=== PATIENT | male | born 1985 | race Caucasian/White ===

== ENCOUNTER 2017-03-12 11:05 | Outpatient (CLI) ==
[2016-04-19 00:02] VITALS: BMI 28.3
[2017-03-12 11:21] LABS: BASOPHILS # (AUTO) 0.1 K/uL (0-0.2); BASOPHILS % (AUTO) 0.6 % (0.0-3.0); EOSINOPHILS # (AUTO) 0.1 K/ul (0.0-0.7); EOSINOPHILS % (AUTO) 1.8 % (0.0-7.0); HEMATOCRIT 44.1 % (42.0-52.0); HEMOGLOBIN 14.7 g/dl (14.0-18.0); IMMATURE GRANULOCYTE % (AUTO) 0.4 % (0.0-5.0); LYMPHOCYTES # (AUTO) 2.5 K/uL (0.60-3.4); LYMPHOCYTES % (AUTO) 32.6 (10.0-50.0); MEAN CORPUSCULAR HEMOGLOBIN 27.8 pg (27.0-31.0); MEAN CORPUSCULAR HGB CONC 33.3 (31.8-35.4); MEAN CORPUSCULAR VOLUME 83.5 fl (80.0-94.0); MONOCYTES # (AUTO) 0.5 K/uL (0.4-2.0); MONOCYTES % (AUTO) 5.8 (0-10); NEUTROPHILS # (AUTO) 4.5 K/ul (2.0-6.9); NEUTROPHILS % (AUTO) 58.8; PLATELET COUNT 215 10^3/uL (140-440); RED BLOOD COUNT 5.28 10^6/ul (4.70-6.10); WHITE BLOOD COUNT 7.71 K/ul (4.2-10.2)
[2017-03-12 12:02] LABS: ALBUMIN 3.9 g/dL (3.4-5.0); ALBUMIN/GLOBULIN RATIO 1.15; ANION GAP 10.8; BILIRUBIN,TOTAL 1.02 mg/dL (0.00-1.20); BUN/CREATININE RATIO 10.75; CALCIUM 8.8 mg/dL (8.2-10.2); CHOL/HDL RATIO 4.2 (4.5-6.4); CREATININE 0.93 mg/dL (0.60-1.10); POTASSIUM 3.8 mmol/L (3.5-5.1); TOTAL PROTEIN 7.3 g/dL (6.4-8.2)
[2017-03-13 08:40] LABS: HEPATITIS A ANTIBODY TOTAL Negative (Negative)
[2017-03-14 09:59] LABS: HCV LOG 10 2.519 (.)
== END 2017-03-12 11:06 | disposition home or self-care (01) ==
LOC: LAB 11:05
PROVIDERS: ATTEND Nurse Practitioner Family
DX: I49.9 Cardiac arrhythmia, unspecified (principal); Z00.00 Encounter for general adult medical examination without abnormal findings; Z72.0 Tobacco use; Z87.898 Personal history of other specified conditions
CPT/HCPCS: 36415; 80053; 80061; 80074; 84443; 85025; 86708; 86803; 87340; 87522; 93005; 93010

== ENCOUNTER 2018-06-10 00:57 | Emergency (ER) | payer MEDICAID, OTHER ==
[2018-06-10 01:08] VITALS: BP 129/90; TEMP 98.1; BMI 21.7
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
[2018-06-10] MEDS ORDERED: MORPHINE 2 MG/ML SYRINGE IM STA (02:09)
[2018-06-10] MEDS ORDERED: ZOFRAN 4 MG/2 ML IM STA (02:10)
--- NOTE | 2018-06-10 02:28 | DI ---
EXAM: Right shoulder, four views, 06/10/2018 HISTORY: Shoulder pain COMPARISON: 06/10/2018 FINDINGS / IMPRESSION: Acute mildly displaced fracture has been previously described at the distal r ight clavicle. This has been characterized on same day CT chest. This is again identified. Chronic contour abnormality within the clavicle is also present. This is likely due to old trauma. The acr omioclavicular and glenohumeral joints align normally. The remaining osseous structures appear intac t.
== END 2018-06-10 03:10 | disposition home or self-care (01) ==
LOC: ED 00:57
DX: S42.034A Nondisplaced fracture of lateral end of right clavicle, initial encounter for closed fracture (principal); V19.9XXA Pedal cyclist (driver) (passenger) injured in unspecified traffic accident, initial encounter; F17.210 Nicotine dependence, cigarettes, uncomplicated
CPT/HCPCS: 96372; 99283